=== PATIENT | female | born 1990 | race Caucasian/White ===

== ENCOUNTER 2016-12-18 16:25 | Emergency (ER) | payer OTHER ==
[2016-12-18 16:32] VITALS: BP 105/72; BMI 17.7
--- NOTE | 2016-12-18 18:23 | DR.RASH ---
HPI - Time Seen Time seen: 18:05 - PCP Primary Care Physician: DR. LARA - HPI Comment HPI Comment: Patient admits to a facial rash for four days. Denies any allergy - Complaint Chief Complaint:: PT C/O RASH TO HER FACE... Onset of Chief Complaint: 12/13/16 Self Treatment fo Chief Complaint: ACNE CREAM - Source History Provided: Patient - Mode of Arrival Mode of Arrival: Ambulatory PMH - PM Past Medical History: No Past Surgical History: No - Family History History of Family Medical Conditions: No - Social History Does patient currently use any type of tobacco product: No Have you used tobacco products in the last 12 months: No Type of Tobacco Use: None Does any household member use tobacco: No Alcohol Use: None Do you use any recreational Drugs:: No Lives With: Family Lives Where: Home - infectious screening In the last 2 months have you had wt loss of >10#?: NO Have you had fever, night sweats or hemotysis?: No Have you traveled outside the country in the last 6 months?: No Isolation: Standard ROS - Review of Systems Constitutional: No Symptoms Reported Eyes: No Symptoms Reported ENTM: No Symptoms Reported Respiratoy: No Symptoms Reported Cardiovascular: No Symptoms Reported Gastrointestinal/Abdominal: No Symptoms Reported Genitourinary: No Symptoms Reported Neurological: No Symptoms Reported Musculoskeletal: No Symptoms Reported Integumentary: Lesions (yellow lesion on chin and right cheek) Hematologic/Lymphatic: No Symptoms Reported Endocrine: No Symptoms Reported Psychiatric: No Symptoms Reported All Other Systems: Reviewed and Negative PE - Vital Signs Vitals: Temperature 98.3 F Pulse Rate 111 Respiratory Rate 20 Blood Pressure [Left Arm] 109/68 Blood Pressure 105/72 O2 Sat by Pulse Oximetry 98 - General Limitations: No Limitations General Appearance: Alert, In No Apparent Distress - Head Head Exam: Normal Inspection, Atraumatic - Eyes Eye exam: Normal Appearance, PERRL - ENT ENT Exam: Normal Exam External Ear Exam: Normal External Inspection TM/Canal Exam: Bilateral Normal Nose Exam: Normal Nose Exam Nasal Speculum Exam: Bilateral Normal Mouth Exam: Normal Inspection Teeth Exam: Normal Inspection Throat Exam: Normal Inspection - Neck Neck Exam: Normal Inspection - Chest Chest Inspection: Normal Inspection - Respiratory Respiratory Exam: Normal Lung Sounds Bilat Respiratory Exam: Bilateral Clear to Auscultation - Cardiovascular Cardiovascular Exam: Regular Rate, Normal Rhythm - Abdominal Exam Abdominal Exam: Normal Inspection, Normal Bowel Sounds Abdominal Tenderness: negative: RUQ, RLQ, LUQ, LLQ, Epigastrium, Suprapubic, Diffuse, Mild, Moderate, Severe, Other - Extremities Extremities Exam: Normal Inspection - Back Back Exam: Normal Inspection, Full ROM - Neurologic Neurological Exam: Alert, Oriented X3, CN II-XII Intact - Psychiatric Psychiatric Exam: Normal Affect - Skin Skin Exam: Warm, Dry, Rash (yellow crusted lesions on chin and right cheek) Type of Lesion: Rash Distribution: Face (impetigo) - Diagnosis Discharge Problem: Impetigo - Discharge Plan Condition: Stable - Follow ups/Referrals Follow ups/Referrals: N[facility],None [Primary Care Provider] - 3 days - Instructions
== END 2016-12-18 19:03 | disposition home or self-care (01) ==
LOC: ER 17:39
DX: L01.00 Impetigo, unspecified (principal)
CPT/HCPCS: 99281; 99282